=== PATIENT | male | born 1980 | race Asian ===

== ENCOUNTER 2019-09-27 06:40 | Day surgery (SDC) | payer OTHER ==
[~2019-09-27] VITALS: Ht 175.3 cm; Wt 93.0 kg
[2019-09-27] MEDS ORDERED: PROPOFOL 200MG/ 20ML VIAL (DIPRIVAN) IV ONE (08:16)
[2019-09-27] MEDS ORDERED: LR 1,000 ML IV.SOLN IV ONE (08:16)
[2019-09-27] MEDS ORDERED: SEVOFLURANE 15 MIN GAS INH ONE (08:16)
[2019-09-27] MEDS ORDERED: BUPIVACAINE /EPINEPHRINE/PF 0.5% 30 ML VIAL INJ ONE (08:16)
[2019-09-27] MEDS ORDERED: MIDAZOLAM HCL 5 MG/5 ML VIAL IVP ONE (08:16)
[2019-09-27 09:30] VITALS: BP_SYST 123
[2019-09-27] MEDS ORDERED: ONDANSETRON HCL 4 MG/2 ML VIAL IVP PRN (09:45)
[2019-09-27] MEDS ORDERED: fentaNYL CITRATE/PF 100 MCG/2 ML AMP IVP PRN ×2 (09:45)
== END 2019-09-27 11:20 | disposition home or self-care (01) ==
LOC: SMU 06:40 → SDS 06:40
PROVIDERS: ATTEND Otolaryngology
DX: K13.79 Other lesions of oral mucosa (principal); D10.5 Benign neoplasm of other parts of oropharynx; I10 Essential (primary) hypertension; J45.909 Unspecified asthma, uncomplicated; K21.9 Gastro-esophageal reflux disease without esophagitis; E66.3 Overweight; Z79.899 Other long term (current) drug therapy
CPT/HCPCS: 42104; 88305; J2250; J2704; J3490; J7120; 88302

== ENCOUNTER 2021-02-17 07:13 | Day surgery (SDC) | payer OTHER, SELFPAY ==
[~2021-02-17] VITALS: Ht 175.3 cm; Wt 97.5 kg
[2021-02-17] MEDS ORDERED: SIMETHICONE 40 MG/0.6 ML ML ONE (07:33)
[2021-02-17] MEDS ORDERED: MEPERIDINE 100 MG INJ. 100 MG/ML VIAL ONE (07:33)
[2021-02-17] MEDS ORDERED: MIDAZOLAM HCL 5 MG/5 ML VIAL ONE (07:34)
[2021-02-17 10:19] VITALS: BP_SYST 111
== END 2021-02-17 10:05 | disposition home or self-care (01) ==
LOC: SDS 07:13 → SMU 07:13 → SDS 10:05
PROVIDERS: ATTEND Internal Medicine Gastroenterology
DX: K21.9 Gastro-esophageal reflux disease without esophagitis (principal); K29.50 Unspecified chronic gastritis without bleeding; A04.8 Other specified bacterial intestinal infections; K76.0 Fatty (change of) liver, not elsewhere classified; I10 Essential (primary) hypertension; Z20.828 Contact with and (suspected) exposure to other viral communicable diseases
CPT/HCPCS: 43239; 88305; 88312; 88313; 99152; G0378; J2175; J2250; J7030; U0003